=== PATIENT | male | born 1965 | race Caucasian/White ===

== ENCOUNTER → 2017-06-23 | Outpatient (CLI) | payer BC ==
[~2017-06-23] MED LIST: AMLO5TAB2 PO; ASPI81TA25 PO; GLCSR500 PO; LISI-725 PO; MULT-506 PO; NTRGSL/4 SL; PRLSR20 PO
[2017-06-24 05:58] LABS: HEMOGLOBIN A1C 6.9 % (4.5-5.6)
== END | disposition home or self-care (01) ==
LOC: C.LAB1850 14:57
PROVIDERS: ATTEND Physician Assistant
DX: E11.9 Type 2 diabetes mellitus without complications (principal)